=== PATIENT | male | born 1995 | race Caucasian/White ===

== ENCOUNTER 2022-10-15 17:00 | Emergency (ER) | payer OTHER ==
[~2022-10-15] VITALS: Ht 175.3 cm; Wt 97.0 kg
[2022-10-15 17:54] LABS: BASO % 0.5 % (0.0-1.0); EOS % 0.2 % (0.0-3.0); HEMATOCRIT 48.4 % (42.0-52.0); HEMOGLOBIN 16.2 g/dl (13.5-17.5); LYMPH # 2.5 10^3/uL (1.5-5.0); LYMPH % 29.2 % (24.0-44.0); MEAN CORPUSCULAR HEMOGLOBIN 29.1 pg (27.0-33.0); MEAN CORPUSCULAR HGB CONC 33.5 g/dl (32.0-36.5); MEAN CORPUSCULAR VOLUME 86.9 fl (80.0-96.0); MONO # 0.9 10^3/uL (0.0-0.8); MONO % 10.7 % (2.0-8.0); NEUTROPHILS # 5.1 10^3/uL (1.5-8.5); NEUTROPHILS % 58.8 % (36.0-66.0); PLATELET COUNT, AUTOMATED 266 10^3/uL (150-450); RED BLOOD COUNT 5.57 10^6/uL (4.30-6.10); WHITE BLOOD COUNT 8.6 10^3/uL (4.0-10.0)
[2022-10-15 18:17] LABS: CK-MB VALUE MASS < 1.0 NG/ML (<3.6)
[2022-10-15 18:18] LABS: BLOOD UREA NITROGEN 15 MG/DL (9-23); CALCIUM LEVEL 9.5 MG/DL (8.5-10.1); CARBON DIOXIDE LEVEL 26 MMOL/L (20-31); CHLORIDE LEVEL 104 MMOL/L (98-107); CREATININE FOR GFR 1.17 MG/DL (0.70-1.30); GLOMERULAR FILTRATION RATE > 60.0 (>60); GLUCOSE, FASTING 97 MG/DL (60-100); SODIUM LEVEL 142 MMOL/L (136-145)
[2022-10-15 18:19] LABS: CPK CREATINE PHOSPHOKINASE 64 U/L (46-171); MB/CK RELATIVE INDEX 1.56 (< OR =4)
[2022-10-15] MEDS ORDERED: ISOVUE-370 76% 100ML VIAL As Ordered ONE (18:29)
[2022-10-15] MEDS ORDERED: BACT800T5 PO (19:31)
[2022-10-15] MEDS ORDERED: ALBU6.7H6 INH (19:31)
[2022-10-15] MEDS ORDERED: BENZ200C70 PO (19:31)
[2022-10-15] MEDS ORDERED: BACTRIM 160MG/800MG DS TAB PO ONE (19:35)
[2022-10-15 19:52] VITALS: BP 136/77; TEMP 99.9; O2SAT 100
== END 2022-10-15 19:56 | disposition home or self-care (01) ==
LOC: M ED 17:00
DX: J20.9 Acute bronchitis, unspecified (principal); L03.90 Cellulitis, unspecified; R93.6 Abnormal findings on diagnostic imaging of limbs; Z79.52 Long term (current) use of systemic steroids; Z79.899 Other long term (current) drug therapy
CPT/HCPCS: 36415; 71046; 71275; 80048; 82550; 82553; 84484; 85025; 85379; 87486; 87581; 87633; 87798; 99283; Q9967

== ENCOUNTER 2023-01-27 14:07 | Emergency (ER) | payer OTHER ==
[~2023-01-27] VITALS: Ht 175.3 cm; Wt 102.0 kg
[~2023-01-27 14:07] MED LIST: ALBU6.7H6 INH; BACT800T5 PO; BENZ200C70 PO
[2023-01-27 16:37] LABS: BASO % 0.3 % (0.0-1.0); EOS # 0.1 10^3/uL (0.0-0.5); EOS % 1.1 % (0.0-3.0); HEMATOCRIT 48.3 % (42.0-52.0); HEMOGLOBIN 16.2 g/dl (13.5-17.5); LYMPH # 2.3 10^3/uL (1.5-5.0); LYMPH % 19.1 % (24.0-44.0); MEAN CORPUSCULAR HEMOGLOBIN 29.2 pg (27.0-33.0); MEAN CORPUSCULAR HGB CONC 33.5 g/dl (32.0-36.5); MONO # 1.4 10^3/uL (0.0-0.8); MONO % 11.5 % (2.0-8.0); NEUTROPHILS # 8.1 10^3/uL (1.5-8.5); NEUTROPHILS % 67.7 % (36.0-66.0); PLATELET COUNT, AUTOMATED 258 10^3/uL (150-450); RED BLOOD COUNT 5.55 10^6/uL (4.30-6.10)
[2023-01-27] MEDS ORDERED: ISOVUE-370 76% 100ML VIAL As Ordered ONE (16:39)
[2023-01-27 18:35] VITALS: BP 121/62; TEMP 97.3; O2SAT 98
== END 2023-01-27 18:53 | disposition home or self-care (01) ==
LOC: M ED 14:07
DX: S20.219A Contusion of unspecified front wall of thorax, initial encounter (principal); S02.2XXA Fracture of nasal bones, initial encounter for closed fracture; S60.212A Contusion of left wrist, initial encounter; V86.56XA Driver of dirt bike or motor/cross bike injured in nontraffic accident, initial encounter
CPT/HCPCS: 36415; 70450; 70486; 71045; 71260; 72125; 72128; 73110; 80047; 85025; 93041; 94760; 99285; Q9967